=== PATIENT | female | born 2000 | race African-American/Black ===

== ENCOUNTER 2023-12-01 16:56 | Emergency (ER) | payer MEDICAID, OTHER ==
[~2023-12-01] VITALS: Ht 160 cm; Wt 56.0 kg
[2023-12-01 17:08] VITALS: BP 117/69; PULSE 89; RESP 20; TEMP 98.6; O2SAT 100
== END 2023-12-01 20:13 | disposition left against medical advice (07) ==
LOC: ER 17:34
DX: R07.89 Other chest pain (principal); Z53.21 Procedure and treatment not carried out due to patient leaving prior to being seen by health care provider
CPT/HCPCS: 71045; 93005; 99281